=== PATIENT | male | born 1975 | race African-American/Black ===

== ENCOUNTER 2020-03-13 23:08 | Emergency (ER) | payer OTHER, SELFPAY ==
[2020-03-13] MEDS ORDERED: Ibuprofen 800 MG TAB ONE (23:28)
[2020-03-14 11:06] LABS: SARS-CoV-2 MS2 Positive; SARS-CoV-2 N Gene Positive; SARS-CoV-2 S Gene Positive; SARS-CoV-2 orf1ab Positive
== END 2020-03-14 02:08 | disposition home or self-care (01) ==
LOC: ERS 23:08
DX: U07.1 COVID-19 (principal); R50.9 Fever, unspecified
CPT/HCPCS: 87081; 87430; 87635; 99283; U0003